=== PATIENT | female | born 1940 | race African-American/Black ===

== ENCOUNTER 2021-12-27 08:44 | Emergency (ER) | payer OTHER ==
[~2021-12-27] VITALS: Ht 170.2 cm; Wt 104.0 kg
[2021-12-27 09:15] VITALS: BP 94/60
[2021-12-27 10:00] LABS: HEMATOCRIT. 40.1 % (36.0-48.0); MEAN CORPUSCULAR VOLUME 94.5 fL (81.0-99.0); MEAN PLATELET VOLUME 8.3 fl (7.4-10.4); PLATELET 132 x1000/uL (130-400); RED BLOOD CELL COUNT 4.25 mill/uL (4.2-5.4); RED CELL DISTRIBUTION WIDTH 15.4 % (11.6-14.6)
[2021-12-27 10:08] LABS: CHLORIDE 107 mEq/L (98-107)
[2021-12-27] MEDS ORDERED: ASPI-1497 MT (11:14)
[2021-12-27] MEDS ORDERED: ALBU05 NEB (11:14)
[2021-12-27] MEDS ORDERED: FURO-152 MT (11:14)
[2021-12-27 12:13] LABS: PLATELET ESTIMATE NORMAL
== END 2021-12-27 11:56 | disposition home or self-care (01) ==
LOC: ER 08:44
DX: R05.9 Cough, unspecified (principal); I50.9 Heart failure, unspecified; J45.909 Unspecified asthma, uncomplicated; E11.9 Type 2 diabetes mellitus without complications; F03.90 Unspecified dementia, unspecified severity, without behavioral disturbance, psychotic disturbance, mood disturbance, and anxiety; Z86.16 Personal history of COVID-19
CPT/HCPCS: 36415; 71045; 80053; 83880; 84484; 85025; 93005; 99285